=== PATIENT | male | born 1995 | race Caucasian/White ===

== ENCOUNTER 2022-12-30 21:01 | Emergency (ER) | payer OTHER, SELFPAY ==
--- NOTE | ~2022-12-30 | CT_ITS ---
Non-contrast CT scan of the Abdomen and Pelvis Clinical indication: Left flank pain Technique: 2.5 mm axial scans were obtained through the abdomen and pelvis without intravenous or or al contrast. Dose reduction technique was used on this scan by utilizing automated exposure control a nd iterative reconstruction technique. The dose-length product (DLP) was 690.63 mGy-cm. Findings: Images through the lung bases reveal no abnormalities. There is a 4 mm left UVJ stone, with mild to moderate left hydroureteronephrosis. There is an additio nal 4 mm stone in the distal left ureter (axial image 158). There are additional small bilateral nono bstructing renal stones within the kidneys. No right ureteral stone or right hydronephrosis. The liver, spleen, pancreas, gallbladder, and adrenals appear normal. There is no aortic aneurysm. There is no evidence of bowel obstruction. Normal appendix. Images through the pelvis were performed. There is no evidence of ascites or lymphadenopathy. Urinary bladder otherwise unremarkable. No pelvic mass seen. Impression: 4 mm left UVJ stone, with mild to moderate left hydroureteronephrosis. Additional 4 mm stone layering dependently in the dilated distal left ureter, proximal to the aforeme ntioned stone. Additional small bilateral obstructing renal stones present. Reviewed, dictated and finalized at location M. Impression: 4 mm left UVJ stone, with mild to moderate left hydroureteronephrosis. Additional 4 mm stone layering dependently in the dilated distal left ureter, p roximal to the aforementioned stone. Additional small bilateral obstructing renal stones present.
[2022-12-30 21:20] VITALS: BP 144/89; PULSE 93; RESP 19; TEMP 36.2; O2SAT 100
[2022-12-30 21:34] LABS: Basophils Percent Auto 0.3 % (0.2-1.2); Eosinophils Percent Auto 0.2 % (0-4.4); Hematocrit 46.7 % (42.0-52.0); Hemoglobin 16.1 g/dL (14.0-18.0); Immature Granulocyte Absolute 0.08 K/mm3 (0.00-0.031); Immature Granulocyte Percent A 0.5 % (0-0.5); Lymphocytes Absolute Auto 1.18 K/mm3 (0.9-3.2); Mean Corpuscular HGB Conc 34.5 g/dl (32-36); Mean Corpuscular Hemoglobin 30.4 pg (26-34); Mean Corpuscular Volume 88.3 fl (80-100); Mean Platelet Volume 9.5 fl (7.4-10.4); Monocytes Absolute Auto 0.6 K/mm3 (0.1-0.6); Neutrophils Absolute Auto 12.8 K/mm3 (1.3-6.7); Platelet Count Result 415 k/mm3 (150-375); Red Blood Count 5.29 M/mm3 (4.6-6.20); White Blood Count 14.8 K/mm3 (4.5-10.0)
[2022-12-30 21:40] LABS: Appearance Urine Turbid (Clear); Bacteria Urine None Seen /hpf; Bilirubin Urine Negative (Negative); Blood Urine 2+ (Negative); Color Urine Dark Yellow (Yellow); Glucose Urine UA Negative (Negative); Ketones Urine Trace mg/dL (Negative); Leukocyte Esterase Ur Negative LEU/UL (Negative); Nitrate Urine Negative (Negative); Non Pathogenic Casts 0-2; Protein Urine 1+ mg/dL (Negative); RBC Urine 51-100 /hpf (0-2); Specific Grav Ur 1.027 (1.001-1.035); Squamous Epithelial Cell Urine None seen /hpf (Few); WBC Urine 0-5 /hpf; pH Urine >=9.0 (5.0-9.0)
[2022-12-30 21:46] LABS: Alanine Aminotransferase 27 U/L (6-50); Albumin Level 5.1 g/dL (3.5-5.1); Alkaline Phosphatase 98 U/L (38-126); Anion Gap 9 mmol/L (8-16); Aspartate Amino Transferase 27 U/L (17-59); Bilirubin,Total 0.5 mg/dL (0.2-1.3); Blood Urea Nitrogen 8 mg/dL (9-20); Calcium 9.4 mg/dL (8.4-10.2); Carbon Dioxide 26 mmol/L (22-30); Chloride 104 mmol/L (98-107); Estimated CRCL calculation 118 ml/min; Estimated Glomerular Filt Rate > 60; Glucose 113 mg/dL (65-110); Potassium 3.9 mmol/L (3.4-5.0); Sodium 139 mmol/L (137-145)
[2022-12-30 21:49] LABS: Add Urine Microscopic? YES
[2022-12-31 01:11] VITALS: BP 129/82; PULSE 110; RESP 16; TEMP 36.4; O2SAT 100
[2022-12-31 02:46] VITALS: BP 143/96; PULSE 105; RESP 22; O2SAT 98
[2022-12-31 04:00] VITALS: BP 167/96; PULSE 107; RESP 18; O2SAT 97
[2022-12-31] MEDS: SODIUM CHLORIDE 0.9% IV 1,000 ML 999 ML IV CONT (04:37)
[2022-12-31] MEDS: MORPHINE SULFATE (*CRX) 4 MG/ML INJ IV PUSH (04:41)
[2022-12-31] MEDS: ONDANSETRON INJ 4 MG/2 ML VIAL IV PUSH (04:41)
[2022-12-31 06:00] VITALS: BP 133/70; PULSE 100; RESP 18; O2SAT 97
--- NOTE | 2022-12-31 06:48 | ED.GENADULT ---
HPI - General Adult General Chief complaint: Abdominal Pain Stated complaint: lower back pain, sharp Time Seen by Provider: 12/31/22 03:38 History of Present Illness HPI narrative: Patient is a 28-year-old gentleman who presents the emergency department chief complaint of left lower quadrant pain. Patient reports he had a sharp type pain reports he hot reports nausea reports the pain was a spasmodic type pain. Patient reports symptoms are not improved by anything. Related Data Allergies Allergy/AdvReac Type Severity Reaction Status Date / Time No Known Allergies Allergy Mild Verified 12/31/22 02:50 Review of Systems Review of Systems: A 10 system review of systems was completed on the patient and is negative except for what is stated in the HPI. Nursing and ancillary documentation was reviewed. Exam Narrative: GENERAL: Well-appearing, well-nourished, and in no acute distress. HEAD: Normocephalic, atraumatic. EYES: PERRLA and EOMI. ENT: Nares clear, no rhinorrhea or epistaxis. Mucous membranes moist. NECK: Supple. CHEST: Clear to auscultation. No respiratory distress. HEART: Regular rate and rhythm. No murmur heard. Normal peripheral pulses. ABDOMEN: Soft, nontender, nondistended, normal active bowel sounds. EXTREMITIES: Normal range of motion. No edema. SKIN: Warm, dry, no rash. NEURO: No focal deficits. Alert and oriented x3. PSYCH: Normal mood and affect. Course Vital Signs Vital signs: Vital Signs Temperature 36.2 C L 12/30/22 21:20 Pulse Rate 93 12/30/22 21:20 Respiratory Rate 19 12/30/22 21:20 Blood Pressure 144/89 H 12/30/22 21:20 Pulse Oximetry 100 12/30/22 21:20 Oxygen Delivery Room Air 12/30/22 21:20 Temperature 36.4 C 12/31/22 01:11 Pulse Rate 105 H 12/31/22 02:46 Respiratory Rate 22 H 12/31/22 02:46 Blood Pressure 143/96 H 12/31/22 02:46 Pulse Oximetry 98 12/31/22 02:46 Oxygen Delivery Room Air 12/31/22 02:46 Medical Decision Making [facility] Narrative Medical decision making narrative: Differential diagnosis includes ureterolithiasis, UTI, appendicitis, diverticulitis. His laboratory studies were obtained and show a white count of 14.8 electrolytes are within normal limits creatinine was 1.0 patient's urinalysis showed no evidence of UTI there was 51-100 RBCs but negative leukocyte esterase negative nitrate negative bacteria and 0-[address] scan of the abdomen pelvis showed 2 distal left ureteral stones with a maximum size of 5 mm. Patient's pain is much improved patient be discharged home on [place] Flomax Zofran and will be referred to urology. Vital Signs Vital Signs: Vital Signs Temperature 36.2 C L 12/30/22 21:20 Pulse Rate 93 12/30/22 21:20 Respiratory Rate 19 12/30/22 21:20 Blood Pressure 144/89 H 12/30/22 21:20 Pulse Oximetry 100 12/30/22 21:20 Oxygen Delivery Room Air 12/30/22 21:20 Temperature 36.4 C 12/31/22 01:11 Pulse Rate 105 H 12/31/22 02:46 Respiratory Rate 22 H 12/31/22 02:46 Blood Pressure 143/96 H 12/31/22 02:46 Pulse Oximetry 98 12/31/22 02:46 Oxygen Delivery Room Air 12/31/22 02:46 Lab Data 12/30/22 21:27 12/30/22 21:27 Labs: Lab Results 12/30/22 Range/Units 21:27 WBC 14.8 H (4.5-10.0) K/mm3 RBC 5.29 (4.6-6.20) M/mm3 Hgb 16.1 (14.0-18.0) g/dL Hct 46.7 (42.0-52.0) % MCV 88.3 (80-100) fl MCH 30.4 (26-34) pg MCHC 34.5 (32-36) g/dl RDW 12.0 (11.5-14.5) % Plt Count 415 H (150-375) k/mm3 MPV 9.5 (7.4-10.4) fl Immature Gran % (Auto) 0.5 (0-0.5) % Neut % (Auto) 87.0 H (45.5-73.1) % Lymph % (Auto) 8.0 L (18.3-44.2) % [place] % (Auto) 4.0 (2.6-8.5) % Eos % (Auto) 0.2 (0-4.4) % Baso % (Auto) 0.3 (0.2-1.2) % Lymph # (Auto) 1.18 (0.9-3.2) K/mm3 [place] # (Auto) 0.6 (0.1-0.6) K/mm3 Eos # (Auto) 0.0 (0-0.3) K/mm3 Baso # (Auto) 0.0 (0.0-0.1) K/mm3 Abs Immat Gran (auto) 0.08 H (0.00-0.031
[2022-12-31 07:00] VITALS: BP 141/82; PULSE 104; RESP 18; O2SAT 97
== END 2022-12-31 07:10 | disposition home or self-care (01) ==
PROVIDERS: Emergency Provider Emergency Medicine
DX: N13.2 Hydronephrosis with renal and ureteral calculous obstruction (principal)
CPT/HCPCS: 36415; 74176; 80053; 81001; 85025; 96361; 96374; 96375; 99284; J2270; J2405; J7030

== ENCOUNTER 2023-02-05 08:46 | Emergency (ER) | payer OTHER, SELFPAY ==
--- NOTE | ~2023-02-05 | XR_ITS ---
EXAMINATION: XR finger 1st LT min 2V DATE: 02/05/2023 09:07 INDICATION: Pain at the base of the left thumb post hyperextension injury TECHNIQUE: Dorsal palmar, lateral and 2 oblique views of the left first digit were obtained COMPARISON: None FINDINGS: Alignment is normal. No fracture. Joint spaces are normal. Soft tissues are unremarkable. IMPRESSION: 1. Normal left thumb radiographs. Reviewed, dictated and finalized at location A.
--- NOTE | 2023-02-05 08:47 | ED.UPPEXIN ---
HPI - Extremity Injury (Upper) General Chief Complaint: Extremity Injury, Upper Stated Complaint: Thumb Lt Hand Injury Time Seen by Provider: 02/05/23 08:47 Source: patient Mode of arrival: ambulatory Limitations: no limitations History of Present Illness HPI narrative: Patient is a 28-year-old male who presents with left thumb pain since Thursday. Patient was playing soccer and thumb it tip of thumb bending it backwards. Patient has had pain since when moving thumb or touching joint. Patient is use ice and ibuprofen with no relief. Denies any numbness, tingling, weakness to thumb Related Data Home Medications Medication Instructions Recorded Confirmed No Home Medications 02/05/23 02/05/23 Allergies Allergy/AdvReac Type Severity Reaction Status Date / Time No Known Allergies Allergy Mild Verified 02/05/23 08:58 Review of Systems Review of Systems: All systems reviewed & are unremarkable except as noted in HPI and below Constitutional: Constitutional: Denies body ache(s), Denies chills, Denies fatigue, Denies fever(s), Denies headache(s), Denies malaise and Denies weakness Eyes: Eyes: Denies blurry vision, Denies irritation and Denies loss of vision ENT: Denies otalgia, Denies headache(s), Denies nasal discharge, Denies sinus pain and Denies sore throat Cardiovascular: Cardiovascular: Denies chest pain, Denies irregular heart rhythm and Denies dyspnea Respiratory: Respiratory: Denies dyspnea Gastrointestinal: Gastrointestinal: Denies abdominal pain, Denies melena, Denies hematochezia, Denies diarrhea, Denies nausea and Denies vomiting Musculoskeletal: Musculoskeletal: Denies back pain, Denies myalgias, Reports arthralgias and Reports joint swelling Integumentary/Breasts: Skin/Breast: Denies pruritus and Denies rash Neurologic: Denies headache(s), Denies loss of vision and Denies weakness Psychiatric: Psychiatric: Reports no additional psychiatric complaints Endocrine: Endocrine: Denies fatigue PMFSH Comments At time of signature, agree with nursing past medical, surgical, social and family history. There is no relevant family history pertinent to the presenting complaint. Exam Const: General: cooperative, healthy appearing, comfortable, no acute distress and well nourished Nutritional Appearance: well nourished Orientation/consciousness: patient oriented x3 Limitations: no limitations HENMT: Head: normal to inspection, normocephalic and atraumatic Ears: hearing grossly normal bilaterally and external ears normal Face/Nose/Sinus: Normal external nose present, normal facial exam and face symmetric Face and sinus: normal facial exam and face symmetric Mouth: Yes lip normal Eyes: General: appearance normal, both eyes and all related structures Alignment and Position: alignment normal and position normal Periorbital: periorbital findings normal Eyelids: eyelids normal Pupils: Equal, round and reactive pupils present EOM: EOMs intact bilaterally Neck: Neck: normal visual inspection, full ROM and supple Chest: Chest palpation & inspection: normal inspection of the chest Resp: Effort & Inspection: normal respiratory effort and able to speak in complete sentences Auscultation: clear to auscultation bilaterally Cardio: Rate: regular rate Rhythm: regular rhythm Heart sounds: S1 normal heart sound present and S2 normal heart sound present GI: Inspection: normal to inspection Skin: General skin exam: normal color and no rashes or lesions noted Neuro: General: patient oriented x3 and moves all extremities Cranial nerves: Yes Equal, round and reactive pupils present Speech: normal speech Gait exam (Neuro): Normal gait present Extrem: General: normal to inspection, full ROM and no edema Left upper extremity: hand normal capillary refill, neuromotor exam normal Details: wrist extension normal, thumb opposition normal, thumb IP flexion normal, thumb ADduction normal and fingers 2-5 ABduction normal, ne
[2023-02-05 08:55] VITALS: BP 127/92; PULSE 85; RESP 18; TEMP 36.6; O2SAT 99
== END 2023-02-05 09:39 | disposition home or self-care (01) ==
PROVIDERS: Emergency Provider Nurse Practitioner Family
DX: S63.642A Sprain of metacarpophalangeal joint of left thumb, initial encounter (principal); T14.90XA Injury, unspecified, initial encounter; Y93.66 Activity, soccer
CPT/HCPCS: 73140; 99213; G0463

== ENCOUNTER 2023-09-17 08:28 | Emergency (ER) | payer OTHER, SELFPAY ==
--- NOTE | ~2023-09-17 | CT_ITS ---
EXAMINATION: CT abdomen pelvis wo con DATE: 09/17/2023 09:27 INDICATION: Right flank pain TECHNIQUE: Computed tomography (CT) of the abdomen and pelvis was performed without intravenous contr ast. Automated exposure control and iterative reconstruction technique were employed. The dose-length product was 283.73 mGy-cm. COMPARISON: None FINDINGS: Mild dependent atelectasis in the left lower lobe. Heart size normal. No pericardial or pleural effus ion. Liver, gallbladder, spleen, pancreas, bilateral adrenal glands are normal. 3 mm at least partial ly obstructing stone at the right ureterovesicular junction with minimal right hydroureteronephrosis. Additional bilateral nephrolithiasis including a 3 mm stone at the lower pole of the left kidney and 1 mm stone at the lower pole of the left kidney. Bladder is otherwise normal. Bowels including the a ppendix are normal. No free intraperitoneal gas or fluid. No pathologically enlarged abdominal or pel joni lymphadenopathy. Bones are unremarkable. IMPRESSION: 1. Bilateral nephrolithiasis with 3 mm at least partially obstructing stone at the right ureterovesic ular junction with minimal right hydroureteronephrosis. Reviewed, dictated and finalized at location A. IMPRESSION: 1. Bilateral nephrolithiasis with 3 mm at least partially obstructing stone at the right ureterovesicular junction with minimal right hydroureteronephrosis.
[2023-09-17 08:31] VITALS: BP 149/96; PULSE 84; RESP 18; TEMP 36.6; O2SAT 100
--- NOTE | 2023-09-17 08:53 | ED.BACK ---
HPI - Back Pain/Injury General Chief Complaint: Back Pain/Injury Stated Complaint: R Flank pain Time Seen by Provider: 09/17/23 08:45 History of Present Illness HPI Narrative: 28-year-old male history of kidney stones presents to the emergency room for evaluation of acute onset of right flank pain. States he woke up this morning with right flank pain, similar to previous history of kidney stones. Associated with nausea vomiting. Related Data Allergies Allergy/AdvReac Type Severity Reaction Status Date / Time No Known Allergies Allergy Mild Verified 09/17/23 08:48 Review of Systems Review of Systems: ROS unremarkable except for stated in HPI Exam Narrative: GENERAL: Well-appearing, well-nourished, no physical limitations, diaphoretic HEAD: Normocephalic, atraumatic. EYES: Conjunctivae normal, PERRLA and EOMI. CHEST: Clear to auscultation. No respiratory distress. No wheezes rales or rhonchi. HEART: Regular rate and rhythm. No murmur heard. Normal peripheral pulses. ABDOMEN: Soft, nontender, nondistended, normal active bowel sounds. BACK: Right CVA tenderness EXTREMITIES: Normal range of motion. No edema. No clubbing or cyanosis SKIN: Warm, dry, no rash. No noted wounds NEURO: No focal deficits. Alert and oriented x3. MAEW. CN's II-XI intact bilaterally, normal gait PSYCH: Cooperative. Normal mood and affect. Course Vital Signs Vital signs: Vital Signs Temperature 36.6 C 09/17/23 08:31 Pulse Rate 84 09/17/23 08:31 Respiratory Rate 18 09/17/23 08:31 Blood Pressure 149/96 H 09/17/23 08:31 Pulse Oximetry 100 09/17/23 08:31 Oxygen Delivery Room Air 09/17/23 08:31 Temperature 36.6 C 09/17/23 08:31 Pulse Rate 84 09/17/23 08:31 Respiratory Rate 18 09/17/23 08:31 Blood Pressure 149/96 H 09/17/23 08:31 Pulse Oximetry 100 09/17/23 08:31 Oxygen Delivery Room Air 09/17/23 08:31 MDM - Back Pain/Injury Lab Data 09/17/23 08:49 09/17/23 08:49 Labs: Lab Results 09/17/23 Range/Units 08:49 WBC 6.3 (4.5-10.0) K/mm3 RBC 5.55 (4.6-6.20) M/mm3 Hgb 16.6 (14.0-18.0) g/dL Hct 49.0 (42.0-52.0) % MCV 88.3 (80-100) fl MCH 29.9 (26-34) pg MCHC 33.9 (32-36) g/dl RDW 12.2 (11.5-14.5) % Plt Count 415 H (150-375) k/mm3 MPV 9.4 (7.4-10.4) fl Immature Gran % (Auto) 0.5 (0-0.5) % Neut % (Auto) 60.2 (45.5-73.1) % Lymph % (Auto) 29.0 (18.3-44.2) % [place] % (Auto) 8.4 (2.6-8.5) % Eos % (Auto) 1.6 (0-4.4) % Baso % (Auto) 0.3 (0.2-1.2) % Lymph # (Auto) 1.83 (0.9-3.2) K/mm3 [place] # (Auto) 0.5 (0.1-0.6) K/mm3 Eos # (Auto) 0.1 (0-0.3) K/mm3 Baso # (Auto) 0.0 (0.0-0.1) K/mm3 Abs Immat Gran (auto) 0.03 (0.00-0.031) K/mm3 Absolute Neuts (auto) 3.8 (1.3-6.7) K/mm3 Absolute Nucleated RBC 0.000 (0.0-0.012) K/mm3 Nucleated RBC % 0.0 (0.0-0.2) % Sodium 139 (137-145) mmol/L Potassium 3.8 (3.4-5.0) mmol/L Chloride 104 (98-107) mmol/L Carbon Dioxide 26 (22-30) mmol/L Anion Gap 9 (4-12) mmol/L BUN 12 (9-20) mg/dL Creatinine 0.90 (0.7-1.3) mg/dL Estim Creat Clear Calc 129 ml/min Estimated GFR > 60 (59 - ) Glucose 100 (65-110) mg/dL Calcium 9.1 (8.4-10.2) mg/dL Total Bilirubin 0.6 (0.2-1.3) mg/dL AST 22 (17-59) U/L ALT 27 (6-50) U/L Alkaline Phosphatase 121 (38-126) U/L Total Protein 8.0 (6.3-8.2) g/dL Albumin 4.8 (3.5-5.1) g/dL Urine Color Yellow (Yellow) Urine Appearance Cloudy H (Clear) Urine pH >=9.0 H (5.0-9.0) Ur Specific [place] 1.027 (1.001-1.035) Urine Protein 1+ H (Negative) mg/dL Urine Glucose (UA) Negative (Negative) mg/dL Urine Ketones Negative (Negative) mg/dL Ur Blood (Man) 1+ H (Negative) Urine Nitrate Negative (Negative) Urine Bilirubin Negative (Negative) Urine Urobilinogen 1.0 (<2.0) mg/dL Leukocyte Esterase Rfl Trace H (Negative) GLORIA/UL Urine RBC 51-100 H (0-2) /hpf Urine WBC
[2023-09-17 08:59] LABS: Basophils Percent Auto 0.3 % (0.2-1.2); Eosinophils Absolute Auto 0.1 K/mm3 (0-0.3); Eosinophils Percent Auto 1.6 % (0-4.4); Hemoglobin 16.6 g/dL (14.0-18.0); Immature Granulocyte Absolute 0.03 K/mm3 (0.00-0.031); Immature Granulocyte Percent A 0.5 % (0-0.5); Lymphocytes Absolute Auto 1.83 K/mm3 (0.9-3.2); Mean Corpuscular HGB Conc 33.9 g/dl (32-36); Mean Corpuscular Hemoglobin 29.9 pg (26-34); Mean Corpuscular Volume 88.3 fl (80-100); Mean Platelet Volume 9.4 fl (7.4-10.4); Monocytes Absolute Auto 0.5 K/mm3 (0.1-0.6); Monocytes Percent Auto 8.4 % (2.6-8.5); Neutrophils Absolute Auto 3.8 K/mm3 (1.3-6.7); Neutrophils Percent Auto 60.2 % (45.5-73.1); Platelet Count Result 415 k/mm3 (150-375); Red Blood Count 5.55 M/mm3 (4.6-6.20); Red Cell Distribution Width 12.2 % (11.5-14.5); White Blood Count 6.3 K/mm3 (4.5-10.0)
[2023-09-17] MEDS: KETOROLAC 30 MG/ML VIAL (*BKC) IV PUSH (08:59)
[2023-09-17] MEDS: ONDANSETRON INJ 4 MG/2 ML VIAL IV PUSH (08:59)
[2023-09-17] MEDS: SODIUM CHLORIDE 0.9% IV 1,000 ML 999 ML IV CONT (09:03)
[2023-09-17] MEDS: HYDROmorphone HCL INJ (*CRX) 1 MG/ML SYR IV PUSH (09:03)
[2023-09-17 09:05] LABS: Appearance Urine Cloudy (Clear); Bacteria Urine None Seen /hpf; Bilirubin Urine Negative (Negative); Blood Urine 1+ (Negative); Color Urine Yellow (Yellow); Glucose Urine UA Negative (Negative); Ketones Urine Negative (Negative); Leukocyte Esterase Ur Trace LEU/UL (Negative); Nitrate Urine Negative (Negative); Non Pathogenic Casts 0-2; Protein Urine 1+ mg/dL (Negative); RBC Urine 51-100 /hpf (0-2); Specific Grav Ur 1.027 (1.001-1.035); Squamous Epithelial Cell Urine None Seen /hpf (Few); WBC Urine 0-5 /hpf (0-3); pH Urine >=9.0 (5.0-9.0)
[2023-09-17 09:08] LABS: Add Urine Microscopic? YES
[2023-09-17 09:16] LABS: Alanine Aminotransferase 27 U/L (6-50); Albumin Level 4.8 g/dL (3.5-5.1); Alkaline Phosphatase 121 U/L (38-126); Anion Gap 9 mmol/L (4-12); Aspartate Amino Transferase 22 U/L (17-59); Bilirubin,Total 0.6 mg/dL (0.2-1.3); Blood Urea Nitrogen 12 mg/dL (9-20); Calcium 9.1 mg/dL (8.4-10.2); Carbon Dioxide 26 mmol/L (22-30); Chloride 104 mmol/L (98-107); Estimated CRCL calculation 129 ml/min; Estimated Glomerular Filt Rate > 60; Glucose 100 mg/dL (65-110); Potassium 3.8 mmol/L (3.4-5.0); Sodium 139 mmol/L (137-145)
[2023-09-17 10:20] VITALS: BP 121/76; PULSE 71; RESP 15; O2SAT 99
== END 2023-09-17 10:21 | disposition home or self-care (01) ==
PROVIDERS: Preventive Medicine Aerospace Medicine; Emergency Provider Nurse Practitioner Family
DX: N20.2 Calculus of kidney with calculus of ureter (principal); R11.0 Nausea; Z87.442 Personal history of urinary calculi
CPT/HCPCS: 36415; 74176; 80053; 81001; 85025; 96361; 96374; 96375; 99284; J1170; J1885; J2405; J7030

== ENCOUNTER 2024-06-19 11:51 | Emergency (ER) | payer OTHER, SELFPAY ==
--- OUTSIDE RECORDS SUMMARY | 2024-06-19 11:54 | XMS_ITS | Clinical Summary ---
Author Organization [facility] Address [address] [place] [address] Care Team Providers Care Crushing Machine Operator Name Role Phone Unavailable Primary Care Provider Unavailabl e Source Comments [facility],non-owned Affiliates and Associated Physician Practices is amultiple site organization consisting of ambulatory clinics and hospital sitesin [place], [place], [place] and [place]. This disclosure is being madepursuant to the Care Everywhere program and may not contain all information available regarding this patient. Last updated 18.[facility] Allergies No known active allergies Medications * Be aware that medications may not be up to date on this document. Alwaysverify current medications with the patient. Medication Sig Dispensed Refills Start Date End Date Status methylPREDNISolone (MEDROL DOSEPAK) 4 MG tabletIndications:Acut e bronchitis, unspecified organism Take by mouth as directed Use dose pack of 4mg tabs, start 24 mg/day, taper by 4mg/day over 6 days per pkg instructions. Take with food. 1 Each 10/09/2016 Active benzonatate (TESSALON) 100 MG capsuleIndications:Acu te bronchitis, unspecified organism You can take 1-2 tablets PO TID PRN, max dose 6 tablets in 24 hours. 30 Cap 10/09/2016 Active Immunizations Name Administration Dates Next Due DTaP VACCINE IM (6wk-6yrs) 09/14/2001,,1996,1996,02/14 HEP A PEDS 2 DOSE 12/20/2007,10/22/2006 HEP B VACCINE, PED/ADOL 1996,1996, HIB BOOSTER 04/04/1997,1996,1996 ,1996 MMR 09/14/2001,01/06/1997 POLIO IPV 09/14/2001,1996,1996 ,1996 TDAP (7yrs+) 10/22/2006 VARICELLA 09/17/2001 Family History Relation Name Status Comments Father Alive Mother Alive Social History Tobacco Use Types Packs/Day Years Used Date Smoking Tobacco: Never Sex and Gender Information Value Date Recorded Sex Assigned at Not on file Gender Identity Not on file Sexual Orientation Not on file Last Filed Vital Signs Vital Sign Reading Time Taken Comments Blood Pressure 122/70 12/08/2018 2:54 PM CDT Pulse 83 12/08/2018 2:54 PM CDT Temperature 37.2 C (99 F) 12/08/2018 2:54 PM CDT Respiratory Rate 16 12/08/2018 2:54 PM CDT Oxygen Saturation 97% 12/08/2018 2:54 PM CDT Inhaled Oxygen Concentration - - Weight 74.8 kg (165 lb) 12/08/2018 2:54 PM CDT Height 190.5 cm (6' 3 ) 12/08/2018 2:54 PM CDT Body Mass Index 20.62 12/08/2018 2:54 PM CDT Plan of Treatment Health Maintenance Due Date Last Done Comments HIV SCREENING 12/31/2010 HEPATITIS C SCREENING 12/27/2013 DTAP/TDAP/TD VACCINES (7 - Td or Tdap) 10/22/2016 10/22/2006, 09/14/2001, 04/04/1997, Additional history exists COVID-19 VACCINE ( season) 2024 INFLUENZA VACCINE (#1) 2024 DEPRESSION SCREENING 05/04/2024 ZOSTER VACCINE (1 of 2) 12/31/2045 HEPATITIS B VACCINE Completed 1996, 1996, 1996 HIB VACCINE Completed 04/04/1997, 07/02, 1996, Additional history exists HPV VACCINE Aged Out No longer eligi ble based on patient's age to complete this topic MENINGOCOCCAL (Group B) VACCINE Aged Out No longer eligible based on patient's age to complete this topic MENINGOCOCCAL VACCINE Aged Out No meryl sterling eligible based on patient's age to complete this topic PNEUMOCOCCAL VACCINE Aged Out No long er eligible based on patient's age to complete this topic FRANTZ LOWRY Personal/Family 1995 [address] [place] [address]
--- OUTSIDE RECORDS SUMMARY | 2024-06-19 11:54 | XMS_ITS | Patient Health Summary ---
Author Organization [facility] Address [address] [place] [address] Care Team Providers Care Lead Producer Name Role Phone Unavailable Primary Care Provider Unavailabl e Note from [facility],non-owned Affiliates and Associated Physician Practices is amultiple site organization consisting of ambulatory clinics and hospital sitesin [place], [place], [place] and [place]. This disclosure is being madepursuant to the Care Everywhere program and may not contain all information available regarding this patient. Last updated 18.[facility] Allergies No known active allergies Medications * Be aware that medications may not be up to date on this document. Alwaysverify current medications with the patient. * methylPREDNISolone (MEDROL DOSEPAK) 4 MG tablet(Started 10/09/2016) Take by mouth as directed Use dose pack of 4mg tabs, start 24 mg/day, taper by 4mg/day over 6 days per pkg instructions. Take with food. * benzonatate (TESSALON) 100 MG capsule(Started 10/09/2016) You can take 1-2 tablets PO TID PRN, max dose 6 tablets in 24 hours. Immunizations * DTaP VACCINE IM (6wk-6yrs)(Given 09/14/2001, 04/04/1997, 1996, 1996, 1996) * HEP A PEDS 2 DOSE(Given 12/20/2007, 10/22/2006) * HEP B VACCINE, PED/ADOL(Given 1996, 1996, 1996) * HIB BOOSTER(Given 04/04/1997, 1996, 1996, 1996) * MMR(Given 09/14/2001, 01/06/1997) * POLIO IPV(Given 09/14/2001, 1996, 1996, 1996) * TDAP (7yrs+)(Given 10/22/2006) * VARICELLA(Given 09/17/2001) Social History Tobacco Use Types Packs/Day Years [...]
--- OUTSIDE RECORDS SUMMARY | 2024-06-19 11:54 | XMS_ITS | Referral Summary ---
Author Organization [facility] Address [address] [address] Care Team Providers Care Equipment Tech Name Role Phone Unavailable Primary Care Provider Unavailabl e Source Comments [facility],non-owned Affiliates and Associated Physician Practices is amultiple site organization consisting of ambulatory clinics and hospital sitesin [place], [place], [place] and [place]. This disclosure is being madepursuant to the Care Everywhere program and may not contain all information available regarding this patient. Last updated 18.[facility] Allergies No known active allergies Medications * [...] 09/14/2001,1996,1996 ,1996 TDAP (7yrs+) 10/22/2006 VARICELLA 09/17/2001 Social History Tobacco Use Types Packs/Day Years [...] 12/08/2018 2:54 PM CDT Plan of Treatment Not on file FRANTZ LOWRY Personal/Family 1995 [address] [place] [address]
[2024-06-19 12:14] VITALS: BP 143/84; PULSE 93; RESP 18; TEMP 36.5; O2SAT 99
--- NOTE | 2024-06-19 13:05 | ED_ITS ---
HPI - Nausea/Vomiting/Diarrhea General Chief complaint: Nausea/Vomiting/Diarrhea Stated complaint: Nausea / Black Stool Source: patient Mode of arrival: ambulatory Limitations: no limitations History of Present Illness HPI Narrative: 29-year-old male presents to [facility] with complaints of 1 week history of nausea vomiting and diarrhea which has been improving over the past couple days. Patient reports that he presented today as he was concerned as he noticed black color stool today. Patient has been taking Pepto-Bismol as needed for the past 5 days. Patient reports that he did feel good enough to go to a wedding last night and has eaten leftover fried chicken this morning with no side effects. Patient denies fever, body aches, chills, dizziness, blurred vision or abdominal pains. MD elicited complaint: nausea, vomiting and diarrhea Onset (ago): week(s) (1) Associated nausea: Yes Associated abdominal pain: No Relieving factors: none Treatment prior to arrival: other (Pepto) Related Data Home Medications ?Medication ?Instructions ?Recorded ?Confirmed ?Last Taken ?Type No Home Medications 06/19/24 06/19/24 Unknown History Allergies Allergy/AdvReac Type Severity Reaction Status Date / Time No Known Allergies Allergy Mild Verified 06/19/24 12:16 Review of Systems Constitutional: Constitutional: Denies chills, Denies fatigue, Denies fever(s) and Denies weakness ENT: Denies epistaxis, Denies nasal congestion and Denies sore throat Respiratory: Respiratory: Denies cough, Denies dyspnea and Denies wheezing Gastrointestinal: Gastrointestinal: Reports diarrhea, Reports nausea and Reports vomiting Integumentary/Breasts: Skin/Breast: Denies erythema and Denies rash Neurologic: Denies focal weakness PMFSH Comments At time of signature, I agree with nursing past medical, surgical, social and family history. There is no relevant family history pertinent to the presenting complaint. Exam Const: General: healthy appearing and no acute distress Nutritional Appearance: well nourished Orientation/consciousness: patient oriented x3 Limitations: no limitations HENMT: Head: normal to inspection Eyes: Conjunctivae: conjunctivae normal Neck: Neck: normal visual inspection Resp: Effort & Inspection: normal respiratory effort and not labored Auscultation: clear to auscultation bilaterally, no crackles, no rales and no rhonchi Cardio: Rate: regular rate Rhythm: regular rhythm Heart sounds: no murmurs GI: Inspection: non-distended GI Palp: Yes Soft to palpation, No Tenderness to palpation present (GI), No Guarding due to palpation present (GI) and No Rigid due to palpation : General: Yes Bladder palpation abnormal and Yes no CVA tenderness Skin: General skin exam: normal color Rashes: no rashes Neuro: General: patient oriented x3 and moves all extremities Cranial nerves: Yes Nystagmus not present Speech: normal speech Gait exam (Neuro): Normal gait present Extrem: General: normal to inspection Psych: Affect: normal affect Attitude: cooperative Course Course Level of Care: Express Care Visit Vital Signs Vital signs: Vital Signs Temperature 36.5 C 06/19/24 12:14 Pulse Rate 93 06/19/24 12:14 Respiratory Rate 18 06/19/24 12:14 Blood Pressure 143/84 H 06/19/24 12:14 Pulse Oximetry 99 06/19/24 12:14 Oxygen Delivery Room Air 06/19/24 12:14 Temperature 36.5 C 06/19/24 12:14 Pulse Rate 93 06/19/24 12:14 Respiratory Rate 18 06/19/24 12:14 Blood Pressure 143/84 H 06/19/24 12:14 Pulse Oximetry 99 06/19/24 12:14 Oxygen Delivery Room Air 06/19/24 12:14 MDM - Nausea/Vomiting/Diarrhea MDM Narrative Medical decision making narrative: Educated patient side effects of taking Pepto-Bismol can be black colored stools. Patient denies need for prescription of Zofran at this time. Initiated patient to stop Pepto and to continue to monitor for black colored stools and educated patient to proceed to the emergency room if black colored stools would continue. Differential Diagnosis Differential diagnosis: Likely food poisoning and gastroenteritis Critical Care Time Critical Care Time Critical Care Time: No Discharge Plan Discharge Clinical Impression: Nausea, Side effect of drug Patient Disposition: Home, Self-Care Condition: Stable Instructions: Acute Nausea and Vomiting (ED) Additional Instructions: Follow a bland diet Stop taking Pepto-Bismol and ensure that black colored stools stop Proceed immediately to the emergency room if black colored stools continue Patient Language: Turkmen Prescriptions: No Action No Home Medications Follow-up/Referrals: PHYSICIAN,ELEVATOR OPERATOR FREIGHT [Primary Care Provider] - Time of Disposition: 13:12
== END 2024-06-19 13:22 | disposition home or self-care (01) ==
PROVIDERS: Emergency Provider Nurse Practitioner Family
DX: R11.0 Nausea (principal); R19.5 Other fecal abnormalities; T47.6X5A Adverse effect of antidiarrheal drugs, initial encounter
CPT/HCPCS: 99211; G0463